=== PATIENT | male | born 1940 ===

== ENCOUNTER 2018-06-13 20:15 | Outpatient (CLI) | payer SELFPAY | END 2018-06-13 20:16 | disposition EMS.NT | LOC: EMS 20:15 | PROVIDERS: ATTEND Surgery | DX: S01.81XA Laceration without foreign body of other part of head, initial encounter (principal); W01.0XXA Fall on same level from slipping, tripping and stumbling without subsequent striking against object, initial encounter; Y92.008 Other place in unspecified non-institutional (private) residence as the place of occurrence of the external cause ==